=== PATIENT | female | born 1990 | race Caucasian/White ===

== ENCOUNTER 2019-07-02 16:35 | Emergency (ER) | payer OTHER ==
[~2019-07-02] VITALS: Ht 154.9 cm; Wt 108.1 kg
[2019-07-02 16:40] VITALS: TEMP 98.1
[2019-07-02] MEDS ORDERED: TOPROL XL 50MG50 MG PO (17:03)
[2019-07-02] MEDS ORDERED: ANUSOL-HC SUPPO25 MG RC (18:21)
[2019-07-02] MEDS ORDERED: CLEOCIN HC150 MG/CAP PO (18:21)
[2019-07-02 18:27] VITALS: BP 143/94; PULSE 77
== END 2019-07-02 18:35 | disposition home or self-care (01) ==
LOC: COL.ER 16:35
DX: K05.10 Chronic gingivitis, plaque induced (principal); I10 Essential (primary) hypertension; F32.9 Major depressive disorder, single episode, unspecified; F17.210 Nicotine dependence, cigarettes, uncomplicated